=== PATIENT | male | born 2005 | race Two or more races ===

== ENCOUNTER 2024-07-20 13:56 | Outpatient (REF) | payer MEDICAID, SELFPAY ==
--- OUTSIDE RECORDS SUMMARY | 2024-07-20 14:17 | XMS_ITS | Encounter Summary ---
Author Organization [employer] Address [address] [facility] [address] [place] [address] Care Team Providers Care Property And Supply Officer Name Role Phone Louise Johnson MD Primary Care Provider [phone] Reason for Visit * Reason Onset Date Comments Referral 04/19/2024 Encounter Details Date Type Department Care Team ([facility] st Contact Info) Description 04/19/2024 Telephone [facility] [address] [place] [address] Louise Johnson MD [address] [place], [place] [phone] Referral Social History Tobacco Use Types Packs/Day Years Used Date Smoking Tobacco: Never Passive Smoke Exposure: Never Smokeless Tobacco: Never Alcohol Use Standard Drinks/Week Comments Never 0 (1 standard drink = 0.6 oz pur e alcohol) Depression Answer Date Recorded Patient Health Questionnaire-9 Score 7 01/30/2022 Housing Stability Answer Date Recorded What is your housing situation today? I have [place] shaikh 12/19/[address] you li ve. Do you have problems with any of the following? None of the above 12/19/2022 Food Insecurity Answer Date Recorded Within the past 12 months, y ou worried that your food would run out before you got money to buy more: Never True 12/19/2022 Within the past 12 months,th e food you bought just didn't last and you didn't have enough money to get more: Never True Transportation Answer Date Recorded In the past 12 months, has l ack of transportation kept you from medical appts, meetings, work or from getting things needed for daily living? No 12/19/2022 Utilities Answer Date Recorded In the past 12 months, has t he electric, gas, oil or water company threatened to shut off services in your home? No 12/19/2022 Depression Answer Date Recorded Patient Health Questionnaire-2 Score 2 01/30/2022 Sex and Gender Information Value Date Recorded Sex Assigned at Male 12/24/2021 10:18 AM EDT Legal Sex Male 10:18 AM EDT Gender Identity Transgender Female 04/05/2024 9: 48 AM EST Sexual Orientation Pansexual 04/05/2024 9: 48 AM EST documented as of this encounter Miscellaneous Notes * Telephone Encounter - Crystal Pendleton RN - 04/20/2024 9:30 AM EST Call was placed to [facility] Speech therapy. VM was left to clarify if referral was needed as pt was ableto book appt without it. * Telephone Encounter - Wiley Quinones - 04/19/2024 4:38 PM EST TC from pt states received a call from [facility] Villeg[facility] regarding Physical Therapy referral they have received. Per pt referral was placed wrong and needs to be for Speech Therapy not physical . Pt needs this done by 04/20 at 03:45 pm or they will not be able to see pt . documented in this encounter Plan of Treatment Not on file documented as of this encounter Visit Diagnoses Not on filedocumented in this encounter Additional Health Concerns Assessment Noted Time PHQ-9 Depression Total Score: 7 01/31/20 22 9:26 AM EST documented as of this encounter Care Teams Property And Supply Officer Relationship Specialty Start Date End Date Louise Johnson MD [address] [place] [address] PCP - General Family Medicine 02/24/18 documented as of this encounter
[2024-07-20 16:13] LABS: Estimated Average Glucose 105 mg/dL; Hemoglobin A1c % 5.3 % (<6.0); Total Hemoglobin (HGBA1C) 3400.0733 umol/L
[2024-07-20 16:21] LABS: Alanine Aminotransferase 9 U/L (0-40); Aspartate Amino Transferase 24 U/L (5-37); Blood Urea Nitrogen 13 mg/dL (9-16); Estimated Glomerular Filt Rate > 60; Potassium 3.7 mmol/L (3.3-5.1)
[2024-07-20 16:37] LABS: TSH reflex Free T4 1.67 uIU/mL (0.32-4.0)
[2024-07-24 13:19] LABS: Testosterone, Total 72 ng/dL (250-1100)
[2024-07-24 14:34] LABS: Testosterone, Free 10.1 pg/mL (35.0-155.0); Testosterone, Total 72 ng/dL (250-1100)
[2024-08-02 06:54] LABS: Estradiol Ultra Sensitive 70 pg/mL (< OR = 29)
== END 2024-07-20 13:57 | disposition home or self-care (01) ==
LOC: HO.HHCL 13:56
PROVIDERS: Pediatrics; Visit Provider Advanced Practice Midwife
DX: F64.9 Gender identity disorder, unspecified (principal); F41.9 Anxiety disorder, unspecified
CPT/HCPCS: 36415; 82565; 82670; 83036; 84132; 84402; 84403; 84443; 84450; 84460; 84520

== ENCOUNTER 2024-12-28 15:55 | Outpatient (REF) | payer MEDICAID, SELFPAY ==
--- OUTSIDE RECORDS SUMMARY | 2024-12-28 15:20 | XMS_ITS | Encounter Summary ---
Author Organization [employer] Address [address] [facility] [address] [facility] [address] [place] [address] Care Team Providers Care Produce Manager Name Role Phone Louise Johnson MD Primary Care Provider [phone] Encounter Details Date Type Department Care Team (Late st Contact Info) Description 12/28/2024 3:20 PM EST Office Visit [facility] [address] [place], [place] [phone] Karen Jacobson MD [address] [place], [place] [phone] Routine screening for STI (sexually transmitted infection) (Primary Dx); Swollen tonsil; Tongue ulcer Social History Tobacco Use Types Packs/Day Years Used Date Smoking Tobacco: Never Passive Smoke Exposure: Never Smokeless Tobacco: Never Alcohol Use Standard Drinks/Week Comments Never 0 (1 standard drink = 0.6 oz pur e alcohol) Depression Answer Date Recorded Patient Health Questionnaire-9 Score 7 01/30/2022 Housing Stability Answer Date Recorded What is your housing situation today? I have [place] shaikh 12/19/[address] you [...] AM EST documented as of this encounter Last Filed Vital Signs Vital Sign Reading Time Taken Comments Blood Pressure 136/78 12/28/2024 3:40 PM EST Pulse 96 12/28/2024 3:40 PM EST Temperature 37.2 C (98.9 F) 12/28/2024 3:40 PM EST Respiratory Rate 16 12/28/2024 3:40 PM EST Oxygen Saturation 98% 12/28/2024 3:40 PM EST Inhaled Oxygen Concentration - - Weight 95.3 kg (210 lb 3.2 oz) 12/28/2024 3:40 P M EST Height 162.6 cm (5' 4 ) 12/28/2024 3:40 PM EST Body Mass Index 36.08 12/28/2024 3:40 PM EST documented in this encounter Progress Notes * Karen Jacobson MD - 12/28/2024 3:20 PM EST Subjective Moises Latricia Keith, 19 years Swollen Tonsils - Swollen tonsils without pain for approximately 3 weeks prior to visit - Initial onset accompanied by severe throat pain during first week, pain resolved after one week, swelling persisted for two additional weeks - Swelling localized to mouth, no swelling in back or cheek - No prior episodes of swollen tonsils reported Oral Ulcers - Ulcers on tongue present for approximately 3 weeks, making it difficult to talk - Ulcers are recurrent, typically occurring twice a month - Two additional ulcer spots present at time of visit - Ulcers commonly caused by accidental tongue biting - No prior history of ulcers associated with swollen tonsils Cold Symptoms - Had a cold a few weeks prior to visit - Severe headache occurred during cold, headache resolved prior to visit Sexual History - Denies history of sexual activity - Denies history of STD testing prior to this visit Objective Blood pressure 136/78, pulse 96, temperature 98.9 ??F (37.2 ??C), temperature source Temporal, resp. rate 16, height 5' 4 (1.626 m), weight 210 lb 3.2 oz (95.3 kg), SpO2 98%. Physical Exam HENT: Head: Normocephalic. Right Ear: Tympanic membrane normal. Left Ear: Tympanic membrane normal. Nose: Nose normal. Mouth/Throat: Pharynx: Oropharynx is clear. Comments: Midline uvula, large tonsils 2+ without erythremia, ulcer 1cm on right lateral tongue. Eyes: Pupils: Pupils are equal, round, and reactive to light. Musculoskeletal: Cervical back: Normal range of motion. No rigidity or tenderness. Lymphadenopathy: Cervical: No cervical adenopathy. - HEENT: Examination revealed nontender tonsillar hypertrophy and lingual ulcers. - Throat swab (2024-12-28): negative for Streptococcus pyogenes Swollen tonsil: - Swollen tonsils likely post-viral, expected to resolve within a few weeks after initial pain subsides. - Monitor for improvement over the next couple of weeks. If swelling persists beyond a month, return for further evaluation. Tongue ulcer: - Tongue ulcer attributed to mechanical trauma from biting, consistent with recurrent episodes. - Monitor for resolution. No specific intervention recommended. Routine screening for STI (sexually transmitted infection): - No clinical suspicion for STI, but routine screening performed as standard of care for persistentoropharyngeal symptoms. - Ordered comprehensive STI panel including tests for gonorrhea, chlamydia, herpes, and syphilis. Results to be reviewed and communicated if abnormal. Hormone level labs: - Ordered hormone level labs as previously requested in July, to be performed concurrently with current labs. This note was drafted using Ambient (Playdate App) technology. The patient/patient's guardian has been informed and has consented to the use of this technology: Yes documented in this encounter Plan of Treatment Scheduled Orders Name Type Priority Associated Diagnoses Orde r Schedule Chlamydia/N. Gonorrhoeae RNA, TMA, Throat Microbiology Routine Swollen tonsil Expected: 12/28/2024 (Approximate), Expires: 12/28/2025 Herpes Simplex Virus Culture with Reflex Typing Microbiology Routine Routine screening for STI (sexually transmitted infection) Expected: 12/28/2024 (Approximate), Expires: 12/28/2025 documented as of this encounter Procedures Procedure Name Priority Date/Time Associated Diagnosis Comments SYPHILIS SCREEN Routine 12/28/2024 4:02 PM EST Tongue ulcer HIV 1/2 ANTIGEN/ANTIBODY, FOURTH GENERATION W/RFL Routine 12/28/2024 4:02 PM EST Routine screening for STI (sexually transmitted infection) POC SHAFFER ID NOW STREP A Routine 12/28/2024 3:47 PM EST Swollen tonsil Tongue ulcer POCT COVID-19 AG SHAFFER ID NOW Routine 12/28/2024 3:46 PM EST Swollen tonsil Tongue ulcer documented in this encounter Results * Syphilis Screen (12/28/2024 4:02 PM EST) Syphilis Screen Nonreactive Nonreactive [facility] Blood Venous blood specimen / Unknown 12/28/2024 4:02 PM EST 12/28/2024 5:54 PM EST us Karen Jacobson MD LAB BLOOD ORDERABLES Final Result [facility] [address] [place] [phone] * HIV-1/2 Antigen and Antibodies, Fourth Generation, with Reflexes (12/28/2024 4:02 PM EST) HIV AB/AG Nonreactive Nonreactive [facility] Comment:HIV-1 p24 Ag and/or HIV-1/HIV-2 Ab not detected.A test result that is nonreactive does not exclude thepossibility of exposure to or infection with HIV-1 and/orHIV-2. Nonreactive results in this assay for individualswith prior exposure to HIV-1 and/or HIV-2 may be due toantigen and antibody levels that are below the limit ofdetection of this assay.The [employer] HIV Ag/Ab Combo assay result andsupplemental assay results should be interpreted inconjunction with the patient's clinical presentation,history and other laboratory results. If the results areinconsistent with clinical evidence, additional testing issuggested to confirm the result. Blood Venous blood specimen / Unknown 12/28/2024 4:02 PM EST 12/28/2024 5:54 PM EST us Karen Jacobson MD LAB BLOOD ORDERABLES Final Result [facility] [address] [place] [phone] * POCT Rapid Strep A SHAFFER ID NOW (12/28/2024 3:47 PM EST) Pathologist [facility] Rapid Strep A Screen Negative Negative, None Detected QC Media Lot # [id number] Lot# Expiration Date Swab 12/28/2024 3:47 PM EST us Karen Jacobson MD POINT OF CARE TEST ENTER/E DIT ORDERABLES Final Result * POCT Rapid Covid-19 SHAFFER ID NOW (12/28/2024 3:46 PM EST) Pathologist [facility] Coronavirus Antigen PCR Negative Negative, Indeterminate, None Detected, Invalid, Specimen unsatisfactory for evaluation, Weakly Positive, 2+ QC Media Lot # [id number] Lot# Expiration Date , Swab 12/28/2024 3:46 PM EST us Karen Jacobson MD POINT OF CARE TEST ENTER/E DIT ORDERABLES Final Result documented in this encounter Visit Diagnoses Diagnosis Routine screening for STI (sexually transmitted infection)- Primary Screening examination for venereal disease Swollen tonsil Tongue ulcer documented in this encounter Additional Health Concerns Assessment Noted Time PHQ-9 Depression Total Score: 7 01/31/20 22 9:26 AM EST documented as of this encounter Care Teams Produce Manager Relationship Specialty Start Date End Date Louise Johnson MD [address] [place] [phone] PCP - General Family Medicine 02/24/18 documented as of this encounter
--- OUTSIDE RECORDS SUMMARY | 2024-12-29 14:39 | XMS_ITS | Clinical Summary ---
Author Organization [employer] Address 75 [facility] 7t [place] [address] Care Team Providers Care Draw End Hand Name Role Phone Louise Johnson MD Primary Care Provider [phone] Allergies Active Allergy Reactions Criticality Noted Date Comments Cat Dander 01/16/2022 Per previous EHR in [facility] : CAT allergy 10/19/2013 Gramineae Pollens 08/16/2020 [...] preop for wisdom teeth extractions. Goes to [facility] dentistry.Had a normal EKG done recently for palpitations.No URI symptoms. 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 [address] [place] [address] Asuncion Bhatti CNM 11/11/[address] [facility] [address] [place] [address] Louise Johnson MD Gender dysphoria (Primary Dx) 11/11/[address] [facility] [address] [place], [place] [phone] Louise Johnson MD Referral; pt need to [...] Health Maintenance Due Date Last Done Comments Alcohol/Substance Use Screening 2016 Dental X-Ray: Full [...] Gonorrhea Screening 08/08/2024 08/09/2023 COVID-19 Vaccine ( season) 2024 04/11/2021, 10/10/2020, 09/19/2020 Influenza Vaccine [...] 02/04/2017, 08/01/2016 Meningococcal Vaccine Completed 11/24/2020, 016 HIV Screening Completed 12/28/2024 RSV under 20 months Aged Out No [...] Recently Relevant to Health Maintenance Results * Syphilis Screen (12/28/2024 4:02 PM EST) Syphilis Screen Nonreactive Nonreactive [facility] Blood Venous blood specimen / Unknown 12/28/2024 4:02 PM EST 12/28/2024 5:54 PM EST us Karen Jacobson MD LAB BLOOD ORDERABLES Final Result [facility] [address] [place] [phone] * HIV-1/2 Antigen and Antibodies, Fourth Generation, with Reflexes (12/28/2024 4:02 PM EST) HIV AB/AG Nonreactive Nonreactive [facility] Comment:HIV-1 p24 Ag and/or HIV-1/HIV-2 Ab not detected.A test result that is nonreactive does not exclude thepossibility of exposure to or infection with HIV-1 and/orHIV-2. Nonreactive results in this assay for individualswith prior exposure to HIV-1 and/or HIV-2 may be due toantigen and antibody levels that are below the limit ofdetection of this assay.The [employer] HIV Ag/Ab Combo assay result andsupplemental assay results should be interpreted inconjunction with the patient's clinical presentation,history and other laboratory results. If the results areinconsistent with clinical evidence, additional testing issuggested to confirm the result. Blood Venous blood specimen / Unknown 12/28/2024 4:02 PM EST 12/28/2024 5:54 PM EST Karen Jacobson MD LAB BLOOD ORDERABLES Final Result Performing Organization Address City/State/[facility] Co de Phone Number [facility] [address] [place] [phone] * POCT Rapid Strep A SHAFFER ID NOW (12/28/2024 3:47 PM EST) [facility] Rapid Strep A Screen Negative Negative, None Detected QC Media Lot # [id number] Lot# Expiration Date Swab 12/28/2024 3:47 PM EST Karen Jacobson MD POINT OF CARE TEST ENTER/E DIT ORDERABLES Final Result * POCT Rapid Covid-19 SHAFFER ID NOW (12/28/2024 3:46 PM EST) [facility] Coronavirus Antigen PCR Negative Negative, Indeterminate, None Detected, Invalid, Specimen unsatisfactory for evaluation, Weakly Positive, 2+ QC Media Lot # [id number] Lot# Expiration Date ,026 Swab 12/28/2024 3:46 PM EST Karen Jacobson MD POINT OF CARE TEST ENTER/E DIT ORDERABLES Final Result * Referral to Speech Therapy (12/08/2024) Louise Johnson MD OUTPATIENT REFERRAL ORDERABLE S Final Result * (ABNORMAL) LIPID PANEL, STANDARD (11/24/2020 9:55 AM EDT) Chol/HDLC Ratio 3.5 <5.0 (calc) [facility] Cholesterol, Total 120 <170 mg/dL [facility] HDL Cholesterol 34(L) >45 mg/dL [facility] LDL Cholesterol 60 <110 mg/dL (calc) [facility] Comment: LDL-C is now calculated using the Manuel-Yanet calculation, which is a validated novel method providing better accuracy than the Friedewald equation in the estimation of LDL-C. Manuel SS et al. MONI. 2013;310(19): 9996-6209 (http://education.[employer]/faq/BAE273) Non-HDL Cholesterol 86 <120 mg/dL (calc) [facility] Comment: For patients with diabetes plus 1 major ASCVD risk factor, treating to a non-HDL-C goal of <100 mg/dL (LDL-C of <70 mg/dL) is considered a therapeutic option. Triglycerides 187(H) <90 mg/dL [facility] 11/24/2020 9:55 AM EDT Louise Johnson MD LAB BLOOD ORDERABLES Final Re sult [facility] [address] from Last 3 Months or Most Recently Relevant to Health Maintenance Insurance [facility] STANDARD [facility] [place] [address] Care Teams Draw End Hand Relationship Specialty Start Date End Date Louise Johnson MD [address] [place] [address] [place] [phone] PCP - General Family Medicine 02/24/18
--- OUTSIDE RECORDS SUMMARY | 2024-12-29 14:39 | XMS_ITS | Encounter Summary ---
Author Organization [employer] Address [address] [facility] [address] 7[address] [place] [address] Care Team Providers Care Custom Tailor Apprentice Name Role Phone Louise Johnson MD Primary Care Provider [phone] Reason for Visit * Reason Onset Date Comments Med Refill 08/02/2024 Encounter Details Date Type Department Care Team ([facility] st Contact Info) Description 08/02/2024 Refill [facility] [address] [place] [address] Asuncion Bhatti CN [address] [place] [address] Social History Tobacco Use Types Packs/Day Years [...] documented as of this encounter Care Teams Custom Tailor Apprentice Relationship Specialty Start Date End Date Louise Johnson MD [address] [place] [phone] PCP - General Family Medicine 02/24/18 documented as of this encounter
--- OUTSIDE RECORDS SUMMARY | 2024-12-29 14:39 | XMS_ITS | Encounter Summary ---
Author Organization [employer] Address [address] [facility] [address] [place] [address] Care Team Providers Care Horn Player Name Role Phone Louise Johnson MD Primary Care Provider [phone] Reason for Visit * Reason Comments Med Refill Encounter Details Date Type Department Care Team ([facility] st Contact Info) Description 03/02/2023 Refill [facility] [address] [place] [address] Aubrey Lorenzo, DMD [address] [place] [address] History of third molar tooth extraction, unspecified [...] documented as of this encounter Care Teams Horn Player Relationship Specialty Start Date End Date Louise Johnson MD [address] [place] [address] PCP - General Family Medicine 02/24/18 documented as of this encounter
--- OUTSIDE RECORDS SUMMARY | 2024-12-29 14:39 | XMS_ITS | Encounter Summary ---
Author Organization [employer] Address [address] [facility] [address] 7[address] [place] [address] Care Team Providers Care Certified Medical Biller Name Role Phone Louise Johnson MD Primary Care Provider [phone] Reason for Visit * Reason Onset Date Comments Med Refill 12/30/2022 Encounter Details Date Type Department Care Team ([facility] st Contact Info) Description 12/30/2022 Telephone [facility] [address] [place] [address] Louise Johnson MD [address] [place], [place] [phone] Med Refill Social History Tobacco Use Types [...] t he electric, gas, oil or water [employer] threatened to shut off services in your [...] documented as of this encounter Care Teams Certified Medical Biller Relationship Specialty Start Date End Date Louise Johnson MD [address] [place] [phone] PCP - General Family Medicine 02/24/18 documented as of this encounter
--- OUTSIDE RECORDS SUMMARY | 2024-12-29 14:40 | XMS_ITS | Encounter Summary ---
Author Organization [email or web address] Address [address] [facility] [address] [place] [address] Care Team Providers Care Driver Recruiter Name Role Phone Louise Johnson MD Primary Care Provider [phone] Encounter Details Date Type Department Care Team (Late st Contact Info) Description 07/14/[address] [facility] [address] [place], [place] [phone] Asuncion Bhatti, CNM [address] [place] [address] Social History Tobacco Use Types Packs/Day Years [...] documented as of this encounter Care Teams Driver Recruiter Relationship Specialty Start Date End Date Louise Johnson MD [address] [place] [phone] PCP - General Family Medicine 02/24/18 documented as of this encounter
--- OUTSIDE RECORDS SUMMARY | 2024-12-29 14:40 | XMS_ITS | Encounter Summary ---
Author Organization [employer] Address [address] [facility] [address] 7[address] [place] [address] Care Team Providers Care Correspondence Analyst Name Role Phone Louise Johnson MD Primary Care Provider [phone] Encounter Details Date Type Department Care Team (Late st Contact Info) Description 10/13/2023 Orders Only [facility] [address] [place], [place] [phone] Provider, MD Jose Social History Tobacco Use [...] EDT) Blood Venous blood specimen / Unknown [facility] Provider MD LAB BLOOD ORDERABLES Malaika l Result * D-Dimer, Quantitative (10/12/2023 12:27 PM EDT) Blood Venous blood specimen / Unknown Result [facility] Provider MD LAB BLOOD ORDERABLES Malaika l Result * Basic Metabolic Panel (10/12/2023 12:24 PM EDT) Blood Venous blood specimen / Unknown [facility] Provider MD LAB BLOOD ORDERABLES Malaika l Result * Hepatic Function Panel (10/12/2023 12:24 PM EDT) Blood Venous blood specimen / Unknown Result [facility] Provider MD LAB BLOOD ORDERABLES Malaika l [...] documented as of this encounter Care Teams Correspondence Analyst Relationship Specialty Start Date End Date Louise Johnson MD [address] [place] [address] PCP - General Family Medicine 02/24/18 documented as of this encounter
--- OUTSIDE RECORDS SUMMARY | 2024-12-29 14:40 | XMS_ITS | Encounter Summary ---
Author Organization [employer] Address [address] [facility] [address] 7[address] [place] [address] Care Team Providers Care Color Coater Name Role Phone Louise Johnson MD Primary Care Provider [phone] Encounter Details Date Type Department Care Team [...] documented as of this encounter Care Teams Color Coater Relationship Specialty Start Date End Date Louise Johnson MD [address] [place] [phone] PCP - General Family Medicine 02/24/18 documented as of this encounter
--- OUTSIDE RECORDS SUMMARY | 2024-12-29 14:40 | XMS_ITS | Encounter Summary ---
Author Organization [employer] Address [address] [facility] [address] [place] [address] Care Team Providers Care Sourcing Consultant Name Role Phone Louise Johnson MD Primary Care Provider [phone] Reason for Visit * Reason Onset Date Comments Med Refill 03/30/2024 Encounter Details Date Type Department Care Team ([facility] st Contact Info) Description 03/30/2024 Refill [facility] [address] [place] [address] Asuncion Bhatti, KENDRA [address] [place] [address] Social History Tobacco Use Types Packs/Day Years [...] t he electric, gas, oil or water [employer] threatened to shut off services in your [...] documented as of this encounter Care Teams Sourcing Consultant Relationship Specialty Start Date End Date Louise Johnson MD [address] [place] [address] PCP - General Family Medicine 02/24/18 documented as of this encounter
--- OUTSIDE RECORDS SUMMARY | 2024-12-29 14:40 | XMS_ITS | Encounter Summary ---
Author Organization [employer] Address [address] [facility] [address] 7[address] [place] [address] Care Team Providers Care Iron Worker Name Role Phone Louise Johnson MD Primary Care Provider [phone] Encounter Details Date Type Department Care Team (Late st Contact Info) Description 06/17/2023 Orders Only [facility] [address] [place], [place] [phone] Asuncion Bhatti, CNM [address] [place] [address] Social History Tobacco Use Types Packs/Day Years [...] documented as of this encounter Care Teams Iron Worker Relationship Specialty Start Date End Date Louise Johnson MD [address] [place] [phone] PCP - General Family Medicine 02/24/18 documented as of this encounter
--- OUTSIDE RECORDS SUMMARY | 2024-12-29 14:40 | XMS_ITS | Encounter Summary ---
Author Organization [employer] Address [address] [facility] [address] [place] [address] Care Team Providers Care Equalizing Saw Operator Name Role Phone Louise Johnson MD Primary Care Provider [phone] Encounter Details Date Type Department Care Team (Late st Contact Info) Description 08/11/2023 Orders Only [facility] [address] [place], [place] [phone] Provider, MD Jose Social History Tobacco Use [...] Group A Culture (08/09/2023 12:53 PM EDT) [facility] Provider MD LAB MICROBIOLOGY - GENERA L ORDERABLES Final Result * CBC (08/09/2023 10:35 AM EDT) Blood Venous blood specimen / Unknown Result [facility] Provider MD LAB BLOOD ORDERABLES Malaika l Result * Basic Metabolic Panel (08/09/2023 10:34 AM EDT) Blood Venous blood specimen / Unknown [facility] Provider MD LAB BLOOD ORDERABLES Malaika l Result * Group A Strep Rapid Screen (08/09/2023 10:32 AM EDT) [facility] Provider MD LAB MICROBIOLOGY - GENERA L ORDERABLES Final Result * D-Dimer, Quantitative (08/09/2023 10:29 AM EDT) Blood Venous blood specimen / Unknown [facility] Provider LAB BLOOD ORDERABLES Malaika l Result * Influenza A And B RNA, Qualitative, Real Time PCR (08/09/2023 9:12 AM EDT) [facility] Provider LAB MOLECULAR DIAGNOSTICS ORDERABLES Final Result * COVID-19 (Novel Coronavirus) PCR (08/09/2023 9:12 AM EDT) [facility] Provider LAB BLOOD ORDERABLES Malaika l Result documented in this encounter Visit Diagnoses Not on filedocumented in this encounter Additional Health Concerns Assessment Noted Time PHQ-9 Depression Total Score: 7 01/31/20 22 9:26 AM EST documented as of this encounter Care Teams Equalizing Saw Operator Relationship Specialty Start Date End Date Louise Johnson MD [address] [place] [address] PCP - General Family Medicine 02/24/18 documented as of this encounter
[2024-12-30 19:18] LABS: C. Trachomatis RNA TMA, Throat NOT DETECTED (NOT DETECTED); N. gonorrhoeae RNA TMA, Throat NOT DETECTED (NOT DETECTED)
== END 2024-12-28 15:56 | disposition home or self-care (01) ==
LOC: HO.HHCLNP 15:55
PROVIDERS: Visit Provider Family Medicine
DX: Z20.2 Contact with and (suspected) exposure to infections with a predominantly sexual mode of transmission (principal); J35.1 Hypertrophy of tonsils
CPT/HCPCS: 87255; 87491; 87591

== ENCOUNTER 2024-12-28 15:55 | Outpatient (REF) | payer MEDICAID, SELFPAY ==
--- OUTSIDE RECORDS SUMMARY | 2024-12-28 15:20 | XMS_ITS | Encounter Summary ---
Author Organization [employer] Address [address] [facility] [address] [place] [address] Care Team Providers Care Technology Support Analyst Name Role Phone Louise Johnson MD Primary Care Provider [phone] Encounter Details Date Type Department Care Team (Late st Contact Info) Description 12/28/2024 3:20 PM EST Office Visit [facility] [address] [place], [place] [phone] Karen Jacobson MD [address] [place], [place] [phone] Routine screening for STI (sexually transmitted infection) [...] labs. This note was drafted using Ambient ('[employer]) technology. The patient/patient's guardian has been informed and has consented to the use of this technology: Yes documented in this encounter Plan of Treatment Scheduled Orders Name Type Priority Associated Diagnoses Orde r Schedule HIV-1/2 Antigen and Antibodies, Fourth Generation, with Reflexes Lab Routine Routine screening for STI (sexually transmitted infection) Expected: 12/28/2024 (Approximate), Expires: 12/28/2025 Syphilis Screen Lab Routine Tongue ulcer Expected: 12/28/2024 (Approximate), Expires: 12/28/2025 Chlamydia/N. Gonorrhoeae RNA, TMA, Throat Microbiology Routine Swollen tonsil Expected: 12/28/2024 (Approximate), Expires: 12/28/2025 Herpes Simplex Virus Culture with Reflex Typing Microbiology Routine Routine screening for STI (sexually transmitted infection) Expected: 12/28/2024 (Approximate), Expires: 12/28/2025 documented as of this encounter Procedures Procedure Name Priority Date/Time Associated Diagnosis Comments POC SHAFFER ID NOW STREP A Routine 12/28/2024 3:47 PM EST Swollen tonsil Tongue ulcer POCT COVID-19 AG SHAFFER ID NOW Routine 12/28/2024 3:46 PM EST Swollen tonsil Tongue ulcer documented in this encounter Results * POCT Rapid Strep A SHAFFER ID NOW (12/28/2024 3:47 PM EST) Pathologist [facility] Rapid Strep A Screen Negative Negative, None Detected QC Media Lot # [id number] Lot# Expiration Date Swab 12/28/2024 3:47 PM EST us Karen Jacobson MD POINT OF CARE TEST ENTER/E DIT ORDERABLES Final Result * POCT Rapid Covid-19 SHAFFER ID NOW (12/28/2024 3:46 PM EST) Pathologist [facility] Coronavirus Antigen PCR Negative Negative, Indeterminate, None Detected, Invalid, Specimen unsatisfactory for evaluation, Weakly Positive, 2+ QC Media Lot # [id number] Lot# Expiration Date , Swab 12/28/2024 3:46 [...] documented as of this encounter Care Teams Technology Support Analyst Relationship Specialty Start Date End Date Louise Johnson MD [address] [place] [id number] PCP - General Family Medicine 02/24/18 documented as of this encounter
--- OUTSIDE RECORDS SUMMARY | 2024-12-28 18:21 | XMS_ITS | Clinical Summary ---
Author Organization [employer] Address [address] [facility] 7t [place] [address] Care Team Providers Care Commissioning Agent Name Role Phone Louise Johnson MD Primary Care Provider Allergies Active Allergy Reactions Criticality Noted Date Comments Cat Dander 01/16/2022 Per previous EHR in [facility] : CAT allergy 10/19/2013 Gramineae Pollens 08/16/2020 Medications meningococcal B vaccine, MenB-FHbp, (Trumenba) vaccine Inject 0.5 mL into the shoulder, thigh, or buttocks 1 (one) time. 2 Active Sodium Fluoride 1.1 % gel 1 Package. Apply small amount to toothbrush and brush with it at night time after meals for 2 mins for caries risk reduction 1 Active escitalopram (Lexapro) 10 MG tablet Take 10 mg by mouth in the morning. 3 Active melatonin 5 MG tablet Take 1-2 tablets by mouth at bedtime. 3 Active midazolam (Versed) 2 MG/ML syrup To be administered by dental provider on day of procedure 7.5 mL 3 Active hydrOXYzine (Atarax) 10 MG/5ML syrup To be administered by dental provider on day of procedure 12.5 mL 3 Active Adderall XR 10 MG 24 hr capsule Take 10 mg by mouth in the morning. 4 Active estradiol (Estrace) 2 MG tablet Take 1 tablet (2 mg) by mouth 2 times daily. 180 tablet 1 5 01/30/20 25 Active traZODone (Desyrel) 50 MG tablet TAKE 1 TO 2 TABLETS BY MOUTH EVERY NIGHT AT BEDTIME NEEDED 5 Active ofloxacin (Floxin) 0.3 % otic solutionIndicat ions:Acute swimmer's ear of right side 5 drops to right ear canal BID x 7 days. 10 mL 5 Active ibuprofen 600 MG tabletIndicatio ns:Acute swimmer's ear of right side 1 tab q 6 hours prn pain or fever 30 tablet 1 5 Active spironolactone (Aldactone) 25 MG tablet TAKE 1 TABLET BY MOUTH TWICE DAILY 60 tablet 2 5 Active Active Problems Problem Noted Date Diagnosed Date Obesity (BMI 35.0-39.9 without comorbidity) 03/28 Gender dysphoria 01/30/2022 Preoperative clearance 01/30/2022 Overview (01/30/2022): Moises is an 17 y/o pateint here for preop for wisdom teeth extractions. Goes to [facility] dentistry.Had a normal EKG done recently for palpitations.No URI symptoms. Child attention deficit disorder 05/15/2011 Developmental speech disorder 05/15/2011 Encounters Date Type Department Care Team Description 12/28/2024 3:20 PM EST Office Visit [facility] [address] [place] [phone] Karen Jacobson MD Routine screening for STI (sexually transmitted infection) (Primary Dx); Swollen tonsil; Tongue ulcer 12/28/2024 Travel 11/20/2024 Refill [facility] [address] [place] [address] Asuncion Bhatti CNM 11/11/2024 Orders Only [facility] [address] [place] [address] Louise Johnson MD Gender dysphoria (Primary Dx) 11/11/2024 Telephone [facility] [address] [place], [place] [phone] Louise Johnson MD Referral; pt need to do blood work from Last 3 Months Immunizations Immunization Administration Dates Next Due DTP 2004 DTaP 04/22/2008, 6,2004,05/07 HPV 9-Valent 02/04/2017,08/01/2016 Hep A, ped/adol, 2 dose 07/19/2014,06/29/2012 Hep B, Adolescent or Pediatric 2004,2004,2004 Hib (HbOC) 04/22/2005,2004,2004 Hib (PRP-T) 07/19/2014 IPV 04/22/2005, 5,2004,03/07 Influenza injectable quadriv alent IIV4 with preservative 12/05/2014 Influenza injectable quadriv alent preservative free 12/06/2021,11/24/2020,12/30/2019,12/10,01/16/2016 Influenza, IIV3, injectable 12/04/2007, 7 Meningococcal B, Omv 12/06/2021 Meningococcal MCV4P ACYW-135 11/24/2020,07/25/19 16 Pfizer Covid-19 Vaccine 12+ 04/11/2021,,09/19/2020 Pneumococcal Conjugate PCV 7 04/22/2005, 2004,2004,03/07 Tdap 07/25/2015 Varicella 04/22/2008,01/09/2005 Family History Medical History Relation Name Comments Strabismus Father Strabismus Sister Relation Name Status Comments Father Sister Social History Tobacco Use Types Packs/Day Years Used Date Smoking Tobacco: Never Passive Smoke Exposure: Never Smokeless Tobacco: Never Tobacco Cessation:Counseling Given: Not Answered Alcohol Use Standard Drinks/Week Comments Never 0 [...] Orientation Pansexual 04/05/2024 9: 48 AM EST Last Filed Vital Signs Vital Sign Reading [...] Mass Index 36.08 12/28/2024 3:40 PM EST Plan of Treatment Health Maintenance Due Date Last Done Comments HIV Screening 2004 Alcohol/Substance Use Screening 2016 Dental X-Ray: Full Mouth 04/21/2016 04/20/2013 Hepatitis C Screening 01/02/2022 Dental X-Ray: Bitewings 03/21/2022 03/20/19, 03/24/2020, 06/17/2017, Additional history exists Dental Oral Exam 03/24/2022 09/20/2021, , 09/22/2020, Additional history exists Dental Prophylaxis 03/24/2022 09/20/2021, 0 03/20/2021, 09/22/2020, Additional history exists Meningococcal B Vaccine (2 of 2 - Bexsero SCDM 2-dose series) 06/06/2022 12/06/2021 Depression Screening 01/30/2023 01/30/2022, 01/31/20 22 SDOH Screening 01/30/2023 01/30/2022 Chlamydia and Gonorrhea Screening 08/08/2024 08/09/2023 COVID-19 Vaccine ( - season) 2024 04/11/2021, 10/10/2020, 09/19/2020 Influenza Vaccine (#1) 2024 , 11/24/2020, 12/30/2019, Additional history exists Disability Screening 04/05/2025 04/05/2024 Family Planning (PISQ) 07/20/2025 07/20/2024 DTaP/Tdap/Td Vaccines (7 - Td or Tdap) 07/24/2025 07/25/2015, 04/22/2008, 04/22/2005, Additional history exists Lipid Panel 11/24/2025 11/24/2020 Tobacco Screening 12/28/2025 12/28/2024 Zoster Vaccines (1 of 2) 01/02/2054 RSV Patients and Patients Aged 60 years or older (1 - 1-dose 75+ series) 01/02/2079 Hepatitis B Vaccines Completed 2004, 2004, 2004 IPV Vaccines Completed 04/22/2005, 06/26, 2004, Additional history exists Pneumococcal Vaccine: Pediatrics (0 to 5 Years) and At-Risk Patients (6 to 49) Years Aged Out 04/22/2005, 2004, 2004, Additional history exists No longer eligible based on patient's age to complete this topic HIB Vaccines Completed 07/19/2014, 03/28, 2004, Additional history exists Hepatitis A Vaccines Completed 07/19/2014, 06/30/19 13 HPV Vaccines Completed 02/04/2017, 08/01/2016 Meningococcal Vaccine Completed 11/24/2020, 016 RSV under 20 months Aged Out No longe r eligible based on patient's age to complete this topic Rotavirus Vaccines Aged Out No longer eligible based on patient's age to complete this topic Procedures Procedure Name Priority Date/Time Associated Diagnosis Comments POC SHAFFER ID NOW STREP A Routine 12/28/2024 3:47 PM EST Swollen tonsil Tongue ulcer POCT COVID-19 AG SHAFFER ID NOW Routine 12/28/2024 3:46 PM EST Swollen tonsil Tongue ulcer AMB REFERRAL TO SPEECH THERAPY Routine 12/08/2024 Gender dysphoria PROPHYLAXIS - ADULT Routine 09/20/2021 1 2:00 AM EDT PERIODIC ORAL EVALUATION - ESTABLISHED PATIENT Routine 09/20/2021 12:00 AM EDT BITEWINGS - 4 RADIOGRAPHIC IMAGES Routine 03/20/2021 12:00 AM EST LIPID PANEL, STANDARD Routine 11/24/2020 9:55 AM EDT INTRAORAL - COMPLETE SERIES OF RADIOGRAPHIC IMAGES Routine 04/20/2013 12:00 AM EST from Last 3 Months or Most Recently Relevant to Health Maintenance Results * POCT Rapid Strep A SHAFFER ID NOW (12/28/2024 3:47 PM EST) Pathologist [facility] Rapid Strep A Screen Negative Negative, None Detected QC Media Lot # [id number] Lot# Expiration Date Swab 12/28/2024 3:47 PM EST Karen Jacobson MD POINT OF CARE TEST ENTER/E DIT ORDERABLES Final Result * POCT Rapid Covid-19 SHAFFER ID NOW (12/28/2024 3:46 PM EST) Pathologist [facility] Coronavirus Antigen PCR Negative Negative, Indeterminate, None Detected, Invalid, Specimen unsatisfactory for evaluation, Weakly Positive, 2+ QC Media Lot # [id number] Lot# Expiration Date Swab 12/28/2024 3:46 PM EST Karen Jacobson MD POINT OF CARE TEST ENTER/E DIT ORDERABLES Final Result * Referral to Speech Therapy (12/08/2024) us Louise Johnson MD OUTPATIENT REFERRAL ORDERABLE S Final Result * (ABNORMAL) LIPID PANEL, STANDARD (11/24/2020 9:55 AM EDT) Chol/HDLC Ratio 3.5 <5.0 (calc) [facility] Cholesterol, Total 120 <170 mg/dL [facility] HDL Cholesterol 34(L) >45 mg/dL [facility] LDL Cholesterol 60 <110 mg/dL (calc) [facility] Comment: LDL-C is now calculated using the Diamond calculation, which is a validated novel method providing better accuracy than the Friedewald equation in the estimation of LDL-C. Manuel SS et al. MONI. 2013;310(19): 1157-6114 (http://education.GetOutfitted.Groove Club/faq/IJT086) Non-HDL Cholesterol 86 <120 mg/dL (calc) [facility] Comment: For patients with diabetes plus 1 major ASCVD risk factor, treating to a non-HDL-C goal of <100 mg/dL (LDL-C of <70 mg/dL) is considered a therapeutic option. Triglycerides 187(H) <90 mg/dL [facility] 11/24/2020 9:55 AM EDT us Louise Johnson MD LAB BLOOD ORDERABLES Final Re sult [facility] [address] from Last 3 Months or Most Recently Relevant to Health Maintenance [facility] [place] [id number] [facility] ST[facility] CHILD Care Teams Commissioning Agent Relationship Specialty Start Date End Date Louise Johnson MD [address] [place] [address] [place] [id number] PCP - General Family Medicine 02/24/18
--- OUTSIDE RECORDS SUMMARY | 2024-12-28 18:21 | XMS_ITS | Encounter Summary ---
Author Organization [employer] Address [address] [facility] [address] [place] [address] Care Team Providers Care Academic Affairs Assistant Name Role Phone Louise Johnson MD Primary Care Provider [phone] Reason for Visit * Reason Onset Date Comments Med Refill 12/30/2022 Encounter Details Date Type Department Care Team ([facility] st Contact Info) Description 12/30/2022 Telephone [facility] [address] [place] [address] Louise Johnson MD [address] [place], [place] [id number] Med Refill Social History Tobacco Use Types Packs/Day Years [...] t he electric, gas, oil or water [employer] threatened to shut off services in your [...] encounter Miscellaneous Notes * Telephone Encounter - Kiah Pena - 12/30/2022 12:34 PM EST Tc from [facility] requesting med refill on estradiol (Estrace) 2 MG tablet documented in this encounter Plan of Treatment Not on file documented as of this encounter Visit Diagnoses Not on filedocumented in this encounter Additional Health Concerns Assessment Noted Time PHQ-9 Depression Total Score: 7 01/31/20 22 9:26 AM EST documented as of this encounter Care Teams Academic Affairs Assistant Relationship Specialty Start Date End Date Louise Johnson MD [address] [place] [id number] PCP - General Family Medicine 02/24/18 documented as of this encounter
--- OUTSIDE RECORDS SUMMARY | 2024-12-28 18:21 | XMS_ITS | Encounter Summary ---
Author Organization [employer] Address [address] [facility] [address] 7[address] [place] [address] Care Team Providers Care Power Plant Mechanic Name Role Phone Louise Johnson MD Primary Care Provider [phone] Reason for Visit * Reason Onset Date Comments Med Refill 08/02/2024 Encounter Details Date Type Department Care Team ([facility] st Contact Info) Description 08/02/2024 Refill [facility] [address] [place] [address] Asuncion Bhatti CN [address] [place] [address] Social History Tobacco Use Types Packs/Day Years [...] AM EST documented as of this encounter Plan of Treatment Not on file documented as of this encounter Visit Diagnoses Not on filedocumented in this encounter Additional Health Concerns Assessment Noted Time PHQ-9 Depression Total Score: 7 01/31/20 22 9:26 AM EST documented as of this encounter Care Teams Power Plant Mechanic Relationship Specialty Start Date End Date Louise Johnson MD [address] [place] [address] PCP - General Family Medicine 02/24/18 documented as of this encounter
--- OUTSIDE RECORDS SUMMARY | 2024-12-28 18:21 | XMS_ITS | Clinical Summary ---
Author Organization [facility] Address [address] [facility] [address] [place] [address] Phone Care Team Providers Care Snap Shearer Name Role Phone Louise Johnson MD Primary Care Provider [phone] Fabian Martines MD Unavailable [phone] Allergies Active Allergy Reactions Criticality Noted Date Comments Pollen Extracts 08/16/2020 Medications fluoride, sodium, (PREVIDENT 5000 PLUS) 1.1 % Crea APPLY SMALL AMOUNT TO TOOTHBRUSH AND BRUSH FOR 2 MINUTES AT NIGHT AFTER MEALS 1 Active melatonin 10 mg Cap Take 5 mg by mouth nightly at bedtime. 1 Active escitalopram oxalate (LEXAPRO) 10 MG tablet Take 10 mg by mouth daily. Active lisdexamfetamin e (VYVANSE) 30 MG capsule Take 30 mg by mouth every morning. Active Active Problems Problem Noted Date Diagnosed Date Gender dysphoria in adolescent and adult 021 Assessment & Plan (08/16/2020 3:55 PM EDT): Moises continues to have gender dysphoria. This is causing her distress. Today we will check labs. She is going to get a physical from her PCP. Then we will come back together to review informed consent. Supplied family with contacts for a group for LGBTQ teens in [place], for online family support groups in [place] for families of trans youth, information on estrogen in sing[place], information on puberty blockers in singaporean. A definite difference between experienced/expressed gender and the one assigned at of at least 6 months duration. A. At least six of the following must be present: Persistent and strong desire to be of the other sex or insistence that they belong to the other sex She sees herself dressing in a feminine manner but does not want to until she appears more feminine. Fantasising about playing opposite gender roles in make-belief play or activities Preference for toys, games, or activities typical of the opposite sex. Rejection of toys, games and activities conforming to one s own sex. In boys avoidance of [id number] play and in girls rejection of typically feminine toys and activities Preference for playmates of the other sex Dislike for sexual anatomy. Boys may hate their penis and testes and girls dislike urinating sitting. Desire to acquire the primary and/or secondary sex characteristics of the opposite sex. B. The gender dysphoria leads to clinically significant distress and/or social, occupational and other functioning impairment. There may be an increased risk of suffering distress or disability. Assessment & Plan (07/25/2020 11:45 AM EDT): 1. Schedule in person visit at earliest convenience of family. 2. Send information to Moises and her mother on support groups and information on estrogen in Thai and [place]onese. (Note, information will be sent via email as patient does not have portal system yet.) Encounters Date Type Department Care Team Description 12/21/2024 2:00 PM EDT Office Visit [facility] [address] [place] [address] [place] [address] Louise Johnson MD Korza, Laurie J, CCC-HUNTING SALES ASSOCIATE Other voice and resonance disorders (Primary Dx); Gender dysphoria 12/15/2024 4:00 PM EDT Office Visit [facility] [address] [place] [address] [place] [address] Louise Johnson MD Korza, Laurie J, CCC-HUNTING SALES ASSOCIATE Other voice and resonance disorders (Primary Dx); Gender dysphoria 12/07/2024 2:00 PM EDT Office Visit [facility] [address] [place] [address] [place] [address] Louise Johnson MD Korza, Laurie J, CCC-HUNTING SALES ASSOCIATE Other voice and resonance disorders (Primary Dx); Gender dysphoria 11/12/2024 Transcribe Orders [facility] [address] [place] [address] Louise Johnson MD Encounter for rehabilitation (Primary Dx) from Last 3 Months Immunizations Immunization Administration Dates Next Due DTP 2004 DTaP 04/22/2008, 6,2004,05/07 HPV9 02/04/2017,08/01/2016 Hepatitis A, ped/adol, 2 dose 07/19/2014, 013 Hepatitis B 2004,2004,2004 Hib,HbOC 04/22/2005,2004,2004 Hib,PRP-T 07/19/2014 INFLUENZA, SPLIT VIRUS, TRIV ALENT W/ PRESERVATIVE IM 12/04/2007,01/09/2007 IPV 04/22/2005, 5,2004,03/07 Influenza Quadrivalent Prese rvative Free IM 12/30/2019,12/10/2018,01/16/2016 Influenza Quadrivalent w/ Pr eservative IM 12/05/2014 MMR 04/22/2008,01/09/2005 Meningococcal MCV4P 07/25/2015 Pneumococcal conjugate, PCV 7 04/22/2005 ,2004,2004,03/07 Tdap 07/25/2015 Varicella 04/22/2008,01/09/2005 Social History Tobacco Use Types Packs/Day Years Used Date Smoking Tobacco: Never Smokeless Tobacco: Never Alcohol Use Standard Drinks/Week Comments Never 0 (1 standard drink = 0.6 oz pur e alcohol) Education Answer Date Recorded Are you interested in more education? Not on ellen e 06/22/2022 Are you concerned about learning? Not on file 06/22/2022 No 06/22/2022 No 06/22/2022 Digital Access Answer Date Recorded No 07/20/2022 No 07/20/2022 Reliable internet access at home? Not on file 07/20/2022 Device with a working camera? Not on file Intimate Partner Violence Answer Date R ecorded Are you denied basic needs s uch as food, clothing, or medical care? No 10/12/2023 In the past 12 months have y ou been in a relationship with a person who hurts, threatens, or tries to control you? No 10/12/2023 Are you denied basic needs s uch as food, clothing, or medical care? No 10/12/2023 In the past 12 months have y ou been in a relationship with a person who hurts, threatens, or tries to control you? No 10/12/2023 Sex and Gender Information Value Date Recorded Sex Assigned at Male 08/09/2023 12:10 AM EDT Legal Sex Male 3:38 PM EDT Gender Identity Female 07/17/2020 4:09 PM EDT Sexual Orientation Choose not to disclose 2023 12:10 AM EDT Last Filed Vital Signs Vital Sign Reading Time Taken Comments Blood Pressure 112/74 10/12/2023 5:50 PM EDT Pulse 96 10/12/2023 5:50 PM EDT Temperature 36.8 C (98.3 F) 10/12/2023 5:50 PM EDT Respiratory Rate 20 10/12/2023 5:50 PM EDT Oxygen Saturation 97% 10/12/2023 5:50 PM EDT Inhaled Oxygen Concentration - - Weight 72.6 kg (160 lb) 08/16/2020 11:24 AM EDT Height 160 cm (5' 3 ) 10/12/2023 1:49 PM EDT Body Mass Index 27.52 08/16/2020 11:24 AM EDT Plan of Treatment Upcoming Encounters Date Type Department Care Team (Late st Contact Info) Description 01/04/2025 3:00 PM EST Office Visit [address] [address] Louise Johnson MD [address] [place] [address] Jolly La, [facility]-HUNTING SALES ASSOCIATE [address] [place] [address] 01/11/2025 3:00 PM EST Office Visit [address] [place] [address] Louise Johnson MD [address] [place] [address] Jolly La CCC-HUNTING SALES ASSOCIATE [address] [place] [address] 01/18/2025 3:00 PM EST Office Visit [address] [place] [address] Louise Johnson MD [address] [place] [address] Jolly La CCC-HUNTING SALES ASSOCIATE [address] [place] [address] 01/25/2025 4:00 PM EST Office Visit [address] [place] [address] Louise Johnson MD [address] [place] [address] Jolly La [facility]-HUNTING SALES ASSOCIATE [address] [place] [address] 02/01/2025 4:00 PM EST Office Visit [address] [address] Louise Johnson MD [address] [place] [address] Jolly La CCC-HUNTING SALES ASSOCIATE [address] [place] [address] 02/22/2025 4:00 PM EST Office Visit [address] [place] [address] Louise Johnson MD [address] [place] [address] Jolly La CCC-HUNTING SALES ASSOCIATE [address] [place] [address] 03/07/2025 3:00 PM EST Office Visit [facility] [address] [place] [address] Louise Johnson MD [address] [place] [address] Jolly La CCC-HUNTING SALES ASSOCIATE 8 [place] [address] 03/18/2025 3:00 PM EST Office Visit [address] [place] [address] Louise Johnson MD [address] [place] [address] Jolly La CCC-HUNTING SALES ASSOCIATE [address] [place] [address] Health Maintenance Due Date Last Done Comments SMOKING Hx and SMOKELESS TOBACCO SCREENING 01/02/2017 MENINGOCOCCAL VACCINES (B) (1 of 2 - Standard) 2020 ADOLESCENT UNIVERSAL LIPID SCREENING 01/02/2021 11/24/2020 DEPRESSION SCREENING 08/16/2021 08/16/2020, 08/17/19 21 DEVELOPMENTAL/BEHAVIORAL SCREENING (PHQ, PSC, or SWYC) 08/16/2021 08/16/2020, 08/16/2020 HEPATITIS C SCREENING 01/02/2022 HIV ONE-TIME SCREENING (18-65 YEARS) 01/02/2022 INFLUENZA VACCINE (#1) 2024 , 12/30/2019, 12/10/2018, Additional history exists COVID-19 VACCINE ( - 2024- season) 2024 10/10/2020, 09/19/2020 COMBINED DTaP,Tdap,Td (7 - Td or Tdap) 07/24/2025 07/25/2015, 04/22/2008, 04/22/2005, Additional history exists PNEUMOCOCCAL VACCINES (0-49 years) Aged Out 04/22/2005, 2004, 2004, Additional history exists No longer eligible based on patient's age to complete this topic MMR VACCINES Completed 04/22/2008, 01/09/2005 VARICELLA VACCINES Completed 04/22/2008, 01/09/2005 HEPATITIS A VACCINES Completed 07/19/2014, 06/30/19 13 HIB VACCINES Completed 07/19/2014, 03/28, 2004, Additional history exists HPV VACCINES Completed 02/04/2017, 08/01/2016 MENINGOCOCCAL VACCINES (ACWY) Completed 11/24/2020, 07/25/2015 Medical Devices Not on file Insurance [facility] Care Teams Snap Shearer Relationship Specialty Start Date End Date Louise Johnson MD [address] [place] [address] PCP - General Pediatrics 07/17/20 Fabian Martines MD [address] [place] [address] Consulting Provider Pediatrics 06/28/21 Additional Source Comments The information contained in this document represents components of the legal health record. It is not the complete legal health record.[facility]
--- OUTSIDE RECORDS SUMMARY | 2024-12-28 18:21 | XMS_ITS | Encounter Summary ---
Author Organization [employer] Address [address] [facility] [address] 7t [place] [address] Care Team Providers Care Malt Roaster Name Role Phone Louise Johnson MD Primary Care Provider [phone] Encounter Details Date Type Department Care Team (Late st Contact Info) Description 06/17/2023 Orders Only [facility] CHC MED & PEDS [address] [place], [place] [phone] Asuncion Bhatti, CNM [address] [place] [address] Social History Tobacco Use Types Packs/Day Years [...] documented as of this encounter Care Teams Malt Roaster Relationship Specialty Start Date End Date Louise Johnson MD [address] [place] [address] PCP - General Family Medicine 02/24/18 documented as of this encounter
--- OUTSIDE RECORDS SUMMARY | 2024-12-28 18:21 | XMS_ITS | Encounter Summary ---
Author Organization [employer] Address [address] [facility] [address] [place] [address] Care Team Providers Care Software Asset Management Analyst Name Role Phone Louise Johnson MD Primary Care Provider [phone] Reason for Visit * Reason Comments Med Refill Encounter Details Date Type Department Care Team ([facility] st Contact Info) Description 03/02/2023 Refill [facility] [address] [place] [address] Aubrey Lorenzo, DMD [address] [place] [address] History of third molar tooth extraction, unspecified edentulism class Social History Tobacco Use Types Packs/Day Years [...] documented as of this encounter Visit Diagnoses Diagnosis History of third molar tooth extraction, unspecified edentulism class documented in this encounter Additional Health Concerns Assessment Noted Time PHQ-9 Depression Total Score: 7 01/31/20 22 9:26 AM EST documented as of this encounter Care Teams Software Asset Management Analyst Relationship Specialty Start Date End Date Louise Johnson MD [address] [place] [address] PCP - General Family Medicine 02/24/18 documented as of this encounter
--- OUTSIDE RECORDS SUMMARY | 2024-12-28 18:21 | XMS_ITS | Encounter Summary ---
Author Organization [employer] Address [address] [facility] [address] 7[address] [place] [address] Care Team Providers Care Rubbish Collection Supervisor Name Role Phone Louise Johnson MD Primary Care Provider [phone] Encounter Details Date Type Department Care Team (Latest Contact Info) Description 12/28/2024 Travel Social History Tobacco Use Types Packs/Day Years [...] documented as of this encounter Care Teams Rubbish Collection Supervisor Relationship Specialty Start Date End Date Louise Johnson MD [address] [place] [address] PCP - General Family Medicine 02/24/18 documented as of this encounter
--- OUTSIDE RECORDS SUMMARY | 2024-12-28 18:21 | XMS_ITS | Encounter Summary ---
Author Organization [email or web address] Address [address] [facility] [address] 7[address] [place] [address] Care Team Providers Care Hot Wire Glass Tube Cutter Name Role Phone Louise Johnson MD Primary Care Provider [phone] Encounter Details Date Type Department Care Team (Late st Contact Info) Description 07/14/2023 Orders Only [facility] MED & PEDS [address] [place], [place] [phone] Asuncion Bhatti, CNM [address] [place] [address] Social History Tobacco Use Types Packs/Day Years [...] documented as of this encounter Care Teams Hot Wire Glass Tube Cutter Relationship Specialty Start Date End Date Louise Johnson MD [address] [place] [address] PCP - General Family Medicine 02/24/18 documented as of this encounter
--- OUTSIDE RECORDS SUMMARY | 2024-12-28 18:22 | XMS_ITS | Encounter Summary ---
Author Organization [employer] Address [address] [facility] [address] [place] [address] Care Team Providers Care Virtual Classroom Manager Name Role Phone Louise Johnson MD Primary Care Provider [phone] Encounter Details Date Type Department Care Team (Late st Contact Info) Description 10/13/2023 Orders Only [facility] MED & PEDS [address] [place], [place] [phone] Provider, MD Jose Social History Tobacco Use Types Packs/Day Years [...] on file documented as of this encounter Procedures Procedure Name Priority Date/Time Associated Diagnosis Comments CBC WITH AUTO DIFFERENTIAL Routine 10/12/2023 12:29 PM EDT D-DIMER, QUANTITATIVE Routine 10/12/2023 12:27 PM EDT HEPATIC FUNCTION PANEL Routine 12:24 PM EDT BASIC METABOLIC PANEL Routine 10/12/2023 12:24 PM EDT INFLUENZA VIRUS A AND B AND SARS-COV-2 (COVID-19) RNA Routine 10/12/2023 12:18 PM EDT documented in this encounter Results * CBC auto differential (10/12/2023 12:29 PM EDT) Blood Venous blood specimen / Unknown [facility] Provider MD LAB BLOOD ORDERABLES Malaika l Result * D-Dimer, Quantitative (10/12/2023 12:27 PM EDT) Blood Venous blood specimen / Unknown Result [facility] Provider MD LAB BLOOD ORDERABLES Malaika l Result * Basic Metabolic Panel (10/12/2023 12:24 PM EDT) Blood Venous blood specimen / Unknown [facility] Provider MD LAB BLOOD ORDERABLES Malaika l Result * Hepatic Function Panel (10/12/2023 12:24 PM EDT) Blood Venous blood specimen / Unknown Result [facility] Provider MD LAB BLOOD ORDERABLES Malaika l Result * Influenza virus A and B and SARS-CoV-2 (COVID-19) RNA Panel (10/12/2023 12:18 PM EDT) us Historical Provider LAB MICROBIOLOGY - GENERA L ORDERABLES Final Result documented in this encounter Visit Diagnoses Not on filedocumented in this encounter Additional Health Concerns Assessment Noted Time PHQ-9 Depression Total Score: 7 01/31/20 22 9:26 AM EST documented as of this encounter Care Teams Virtual Classroom Manager Relationship Specialty Start Date End Date Louise Johnson MD [address] [place] [address] PCP - General Family Medicine 02/24/18 documented as of this encounter
--- OUTSIDE RECORDS SUMMARY | 2024-12-28 18:22 | XMS_ITS | Encounter Summary ---
Author Organization [employer] Address [address] [facility] [address] [place] [address] Care Team Providers Care Buttermaker Name Role Phone Louise Johnson MD Primary Care Provider [phone] Encounter Details Date Type Department Care Team (Late st Contact Info) Description 08/11/2023 Orders Only [facility] CHC MED & PEDS [address] [place], [place] [phone] Provider, MD Jose Social History Tobacco Use [...] Procedure Name Priority Date/Time Associated Diagnosis Comments STREPTOCOCCUS, GROUP A CULTURE Routine 08/09/2023 12:53 PM EDT CBC Routine 08/09/2023 10:35 AM EDT BASIC METABOLIC PANEL Routine 08/09/2023 10:34 AM EDT GROUP A STREP RAPID SCREEN Routine 08/09/2023 10:32 AM EDT D-DIMER, QUANTITATIVE Routine 08/09/2023 10:29 AM EDT COVID-19 (NOVEL CORONAVIRUS) PCR Routine 08/09/2023 9:12 AM EDT INFLUENZA A&B BY PCR Routine 08/09/2023 9:12 AM EDT documented in this encounter Results * Streptococcus Group A Culture (08/09/2023 12:53 PM EDT) [facility] Provider MD LAB MICROBIOLOGY - GENERA L ORDERABLES Final Result * CBC (08/09/2023 10:35 AM EDT) Blood Venous blood specimen / Unknown Result [facility] [place] [facility] Provider MD LAB BLOOD ORDERABLES Malaika l Result * Basic Metabolic Panel (08/09/2023 10:34 AM EDT) Blood Venous blood specimen / Unknown [facility] Provider MD LAB BLOOD ORDERABLES Malaika l Result * Group A Strep Rapid Screen (08/09/2023 10:32 AM EDT) [facility] Provider MD LAB MICROBIOLOGY - GENERA L ORDERABLES Final Result * D-Dimer, Quantitative (08/09/2023 10:29 AM EDT) Blood Venous blood specimen / Unknown [facility] Provider LAB BLOOD ORDERABLES Malaika l Result * Influenza A And B RNA, Qualitative, Real Time PCR (08/09/2023 9:12 AM EDT) [facility] Provider LAB MOLECULAR DIAGNOSTICS ORDERABLES Final Result * COVID-19 (Novel Coronavirus) PCR (08/09/2023 9:12 AM EDT) [facility] Provider LAB BLOOD ORDERABLES Malaika l Result documented in this encounter Visit Diagnoses Not on filedocumented in this encounter Additional Health Concerns Assessment Noted Time PHQ-9 Depression Total Score: 7 01/31/20 22 9:26 AM EST documented as of this encounter Care Teams Buttermaker Relationship Specialty Start Date End Date Louise Johnson MD [address] [place] [address] PCP - General Family Medicine 02/24/18 documented as of this encounter
--- OUTSIDE RECORDS SUMMARY | 2024-12-28 18:22 | XMS_ITS | Encounter Summary ---
Author Organization [employer] Address [address] [facility] [address] [place] [address] Care Team Providers Care Servicenow Administrator Developer Name Role Phone Louise Johnson MD Primary Care Provider [phone] Reason for Visit * Reason Onset Date Comments Med Refill 03/30/2024 Encounter Details Date Type Department Care Team ([facility] st Contact Info) Description 03/30/2024 Refill [facility] MED & PEDS [address] [place] [address] Asuncion Bhatti, KENDRA [address] [place] [address] Social History Tobacco Use Types Packs/Day Years [...] t he electric, gas, oil or water [employer] threatened to shut off services in your [...] encounter Miscellaneous Notes * Telephone Encounter - Asuncion Bhatti CNM - 04/06/2024 12:40 PM EST Waiting on labs. documented in this encounter Plan of Treatment Not on file documented as of this encounter Visit Diagnoses Not on filedocumented in this encounter Additional Health Concerns Assessment Noted Time PHQ-9 Depression Total Score: 7 01/31/20 22 9:26 AM EST documented as of this encounter Care Teams Servicenow Administrator Developer Relationship Specialty Start Date End Date Louise Johnson MD [address] [place] [address] PCP - General Family Medicine 02/24/18 documented as of this encounter
[2024-12-29 10:41] LABS: HIV Num 1 0.06 S/CO (0.00-0.99)
[2024-12-29 10:47] LABS: Syphilis Screen Nonreactive (Nonreactive)
[2025-01-03 09:04] LABS: Estradiol Ultra Sensitive 52 pg/mL (< OR = 29)
== END 2024-12-28 15:56 | disposition home or self-care (01) ==
LOC: HO.HHCL 15:55
PROVIDERS: Family Medicine; PCP Pediatrics; Visit Provider Advanced Practice Midwife
DX: Z11.4 Encounter for screening for human immunodeficiency virus [HIV] (principal); Z11.3 Encounter for screening for infections with a predominantly sexual mode of transmission; K14.0 Glossitis; F64.9 Gender identity disorder, unspecified
CPT/HCPCS: 36415; 82670; 84403; 86780; 87389